=== PATIENT | male | born 1955 | race Caucasian/White ===

== ENCOUNTER → 2017-02-28 | Outpatient (CLI) | payer BC ==
[~2017-02-28] MED LIST: REGADENOSON 0.4 MG/5 ML DISP.SYRIN. IV ONE
--- NOTE | 2017-02-28 11:45 | CARD ---
APPROVED REPORT EXAM: Two-dimensional and M-mode echocardiogram with Doppler and color Doppler. Other Information Quality : Average Rhythm : NSR INDICATION Dyspnea 2D DIMENSIONS RVDd3.3 (2.9-3.5cm)Left Atrium(2D)3.2 (1.6-4.0cm) IVSd1.0 (0.7-1.1cm)Aortic Root(2D)2.9 (2.0-3.7cm) LVDd4.5 (3.9-5.9cm)LVOT Diameter2.2 (1.8-2.4cm) PWd1.0 (0.7-1.1cm)LVDs2.5 (2.5-4.0cm) FS (%) 33.9 %SV69.2 ml LVEF(%)65.3 (>50%) Aortic Valve AoV Peak Juanito.118.8cm/sAoV VTI26.8cm AO Peak GR.5.6mmHgLVOT Peak Juanito.76.1cm/s LVOT VTI 19.43cmAO Mean GR.3mmHg CHIP (VMAX)2.61iy6JLG (VTI)2.78cm2 Mitral Valve MV E Evaeikxq80.7cm/sMV DECEL DPQD567nj MV A Sduwpmiy74.3cm/sMV ZNP45ft E/A Ratio1.4MV A Pqtxzhlz637yw MVA (PHT)4.52cm2 TDI E/Lateral E'7.2E/Medial E'11.6 Pulmonary Valve PV Peak Jgjwsyff289.7cm/sPV Peak Grad.7mmHg RVOT VTI23.4cm Tricuspid Valve TR P. Qlkidjht188jz/sRAP RYNJLMJX1clOo TR Peak Gr.12vmMvVWZC71biZi Pulmonary Vein S1 Zebgghvs58.7cm/sD2 Kdeoaove01.3cm/s LEFT VENTRICLE The left ventricle is normal size. There is normal left ventricular wall thickness. Left ventricle sy stolic function is normal. The Ejection Fraction is 60-65%. There is normal LV segmental wall motion. The left ventricular diastolic function and filling is normal for age. There is no ventricular septa l defect visualized. RIGHT VENTRICLE The right ventricle is normal size. The right ventricular systolic function is normal. ATRIA The left atrium size is normal. The right atrium size is normal. The interatrial septum is intact wit h no evidence for an atrial septal defect or patent foramen ovale as noted on 2-D or Doppler imaging. AORTIC VALVE The aortic valve is normal in structure and function. The aortic valve is trileaflet. Doppler and Col or Flow revealed no significant aortic regurgitation. There is no significant aortic valvular stenosi s. MITRAL VALVE The mitral valve is normal in structure and function. There is no mitral valve stenosis. Doppler and Color Flow revealed no mitral valve regurgitation noted. TRICUSPID VALVE The TV valve leaflets appear slightly displaced to toward the apex, but less than 10 mm. No clear ebs teins morphology noted. Doppler and Color Flow revealed mild tricuspid regurgitation. The PA pressure was estimated at 30 mmHg. There is no tricuspid valve stenosis. PULMONIC VALVE The pulmonic valve is not well visualized. Doppler and Color Flow revealed no pulmonic valvular regur gitation. There is no pulmonic valvular stenosis. GREAT VESSELS The aortic root is normal in size. The ascending aorta is normal in size. Normal pulmonary venous mely w (Doppler). The IVC is normal in size and collapses >50% with inspiration. PERICARDIAL EFFUSION There is no evidence of significant pericardial effusion. Critical Notification Critical Value: No <Conclusion> Left ventricle systolic function is normal. The Ejection Fraction is 60-65%. There is normal LV segmental wall motion. The TV valve leaflets appear slightly displaced to toward the apex, but less than 10 mm. No clear ebs teins morphology noted.
--- NOTE | 2017-02-28 11:48 | RAD ---
APPROVED REPORT Patient Location: OUT-PATIENT Indications Uncontrolled HTN Renal Artery Doppler Right Renal Artery Left Renal Arter y Proximal 172.0/44.0 cm/secProximal 121.0/29.0 cm/sec Mid 155.0/31.0 cm/secMid 75.0/22.0 cm/sec Distal 70.0/22.0 cm/secDistal 67.0/17.0 cm/sec Renal/Aorta Ratio 0.00Renal/Aorta Ratio 0.00 Prox. Resistive Index 0.75Prox. Resistive Index 0.76 Mid Resistive Index 0.80Mid Resistive Index 0.71 Distal Resistive Index 0.69Distal Resistive Index 0.75 Rt. Segmental A. 29.0/7.0 cm/secLt. Segmental A. 33.0/10.0 cm/sec Renal Measurements RightLeft Kidney Kjdivj06 cm cmKidney Dsffoq76.9 cm cm Right Additional FindingsLeft Additional Findings Findings Limited grayscale images of the abdominal aorta reveal mild calcified plaque. Aortic velocities are a pproximately 139 cm/s. In the right renal artery assessment the proximal velocities slightly elevated at 172 7 m/s but the r enal to aortic ratios are within normal limits and there is no evidence of high-grade stenosis. The r ight kidney measures approximately 13 cm and has cortical hypertrophy. The left renal artery evaluation revealed normal velocities and normal renal to aortic ratios. Resist rebeca indices are grossly within normal limits. The left kidney measures approximately 13.9 cm again wi th cortical hypertrophy. Critical Notification Critical Value: No <Conclusion> 1. No significant bilateral renal artery stenosis.
--- NOTE | 2017-02-28 11:55 | RAD ---
APPROVED REPORT Test Type: Pharmacological Stress Nurse/Tech: Megan Lee RN Test Indications: DYSPNEA ON EXERTION Cardiac History: NONE Medications: SEE EHR Medical History: SEE EHR Resting ECG: SINUS RHYTM Resting Heart Rate: 54 bpm Resting Blood Pressure: 135/72mmHg Pretest Chest Pain: None Nurse/Tech Notes Consent: The procedure was explained to the patient in lay terms. Informed consent was witnessed. Keegan eout was entered into [employer]. History and Stress Test performed by RT Fady (R) (N) Pharm. Details Pharmacologic stress testing was performed using 0.4mg per 5ml of regadenoson given intravenously ove r 7-10 seconds. Stress Symptoms FACIAL FLUSHING POST EXERCISE Reason for Termination: Infusion complete Max HR: 82 bpm Max Blood Pressure: 131/72mmHg Chest Pain: No. Arrhythmia: No. INTERPRETATION Stress EKG Conclusion: No acute changes were noted. Imaging Protocol IMAGE PROTOCOL: Rest Tc-99m/stress Tc-99m 1 day Rest: Stress: Viability: Radiopharm.Tc99m EmsupimzcPq66j Sestamibi Snhi16fFe 35mCi Duration 15min. 10min. Img Date 02/28/2017 02/28/2017 Inj-Img Njhg86yre. 60min. Rest Admin Site:IV - Right AntecubitalAdministrator:RT Fady (R)(N) Stress Admin Site: IV - Right AntecubitalAdministrator: RT Fady (R)(N) STRESS DATA End Diast. Vol.105.0mlAv. Heart Rate60.0bpm End Syst. Vol.32.0mlCO Index BSA0.0L/min Myocardial Ozal981.0gEject. Zptjglff38.0% Stress Rates Pk. Fill Rate2.94EDV/secLVtime Pk. Fill 216.06msec Pk. Empty Rate3.62ESV/secLVtime Pk. Jbvwt241.58msec 07/25 Pk. Fill0.94EDV/sec Stress Scores Regional WT0.00Summed WT0.00 Regional WM0.00Summed WM1.00 The rest and stress images show normal perfusion, normal contraction and thickening. LV Perf. Quant 17 Seg. SSS0.00 17 Seg. SRS3.00 17 Seg. SDS0.00 Stress Defect Extent (% LAD)0.00Rest Defect Extent (% LAD)1.90Rev. Defect Extent (% LAD)0.00 Stress Defect Extent (% LCX) 0.00Rest Defect Extent (% LCX)0.00Rev. Defect Extent (% LCX)0.00 Stress Defect Extent (% RCA)0.00Rest Defect Extent (% RCA)2.20Rev. Defect Extent (% RCA)0.00 Stress Defect Extent (% CELINA)0.00Rest Defect Extent (% CELINA)3.50Rev. Defect Extent (% CELINA)0.00 Other Information Quality:Fair Risk Assessment: Low Risk Conclusion 1. No evidence of EKG changes with stress testing. 2. Normal perfusion at stress/rest. 3. Low risk study. 4. EF > 60%.
== END | disposition home or self-care (01) ==
LOC: NM 07:37
PROVIDERS: ATTEND Internal Medicine Cardiovascular Disease
DX: I10 Essential (primary) hypertension (principal); I49.5 Sick sinus syndrome; I08.1 Rheumatic disorders of both mitral and tricuspid valves; R06.09 Other forms of dyspnea
CPT/HCPCS: 78452; 93017; 93306; 93975; 96374; 96375; 96376; A9500; J2785

== ENCOUNTER → 2018-01-21 | Outpatient (CLI) | payer BC ==
[2018-01-21 12:14] LABS: ALBUMIN 4.1 g/dL (3.4-5.0); ALBUMIN/GLOBULIN RATIO 1.1 (1.0-1.7); ALK PHOS 60 U/L (46-116); ALT (SGPT) 42 U/L (16-63); ANION GAP 8 (6-14); AST (SGOT) 22 U/L (15-37); BLOOD UREA NITROGEN 15 mg/dL (8-26); BUN/CREATININE RATIO 17 (6-20); CALCIUM 9.2 mg/dL (8.5-10.1); CARBON DIOXIDE 27 mmol/L (21-32); CHLORIDE 103 mmol/L (98-107); CHOLESTEROL 260 mg/dL (0-200); CREATININE 0.9 mg/dL (0.7-1.3); GFR 86.1; GLUCOSE 128 mg/dL (70-99); HDLC 39 mg/dL (40-60); LDLC 191 mg/dL (0-100); NON-HDL CHOLESTEROL 221 mg/dL (0-129); POTASSIUM 3.8 mmol/L (3.5-5.1); SODIUM 138 mmol/L (136-145); TOTAL BILIRUBIN 0.3 mg/dL (0.2-1.0); TOTAL PROTEIN 7.8 g/dL (6.4-8.2); TRIGLYCERIDES 149 mg/dL (0-150); VLDLC 30 mg/dL (0-40)
[2018-01-21 12:21] LABS: CHOLESTEROL/HDL RATIO 6.7
[2018-01-21 22:12] LABS: ESTRADIOL LEVEL 44.3 pg/mL (7.6-42.6); PROGESTERONE 0.1 ng/mL (0.0-0.5); TESTOSTERONE TOTAL 624 ng/dL (264-916)
[2018-01-24 15:22] LABS: ESTRONE LEVEL 85 pg/mL (12-72)
[2018-01-25 09:17] LABS: DHEA 269 ng/dL (31-701)
== END | disposition home or self-care (01) ==
LOC: LAB 11:12
DX: E29.1 Testicular hypofunction (principal); I10 Essential (primary) hypertension
CPT/HCPCS: 36415; 80053; 80061; 82670; 82679; 84144; 84403

== ENCOUNTER → 2018-07-11 | Outpatient (CLI) | payer BC ==
--- NOTE | 2018-07-11 14:36 | CARD ---
MR#: [id number] Date of Study: 07/11/2018 Ordering Physician: SUNDEEP SMITH, Referring Physician: Cameron HOBBS: Rekha Cottrell RDCS APPROVED REPORT INDICATION Fatigue Hypertension/HCVD RISK FACTORS Hypertension PROCEDURE The patient underwent an Exercise Stress Test using the Mejia Protocol. Blood pressure, heart rate, a nd EKG were monitored. An Echocardiogram was performed by aviation electronics technician in four stages in quad fashion. At peak stress four se lected images were obtained and placed side by side with resting images for comparison. STRESS ECHO FINDINGS The resting Echocardiogram showed normal left ventricular systolic contractility with an estimated Ej ection Fraction of about 60 %. The Resting Echocardiogram showed normal augmentation of myocardial wall segments using a 16 segment model. The Stress Echocardiogram showed normal augmentation of myocardial wall segments using a 16 segment m yolanda. The Stress Echocardiogram left ventricular systolic contractility has an estimated Ejection Fraction of about 80%. Test Type: Exercise Stress Nurse/Tech: Janet Martin R.N. Test Indications: HTN, fatigue, SOB Cardiac History and Allergies: See [employer] EMR NKDA Medications: see ehr Medical History: see ehr Resting ECG: SR Resting Heart Rate: 66 bpm Resting Blood Pressure: 145/65mmHg Pretest Chest Pain: No chest pain Nurse/Tech Notes S1S2, lungs CTA Stress Symptoms SOB, fatigue POST EXERCISE Reason for Termination: Reached target heart rate Target HR: Yes Max HR: 154 bpm 97% of Maximum Predicted HR: 159 bpm Exercise duration: 12.00 min:sec, 4 Stage Exercise capacity: 12.8METs Max Blood Pressure: 200/80mmHg Blood Pressure response to exercise: Normal blood pressure response during stress. Heart Rate response to exercise: wnl Chest Pain: No. Arrhythmia: Yes. pac's and pvc's ST Change: Yes. non diagnostic changes INTERPRETATION Stress EKG Conclusion: Baseline EKG showed sinus rhythm. Non diagnostic changes at peak stress. No significant arrhythmias. Preliminary Notification Critical Value: No Signed by : Sundeep Smith, Electronically Approved : 07/11/2018 14:34:29
== END | disposition home or self-care (01) ==
LOC: ECHO 12:54
PROVIDERS: ATTEND Internal Medicine Cardiovascular Disease
DX: I10 Essential (primary) hypertension (principal); R53.83 Other fatigue
CPT/HCPCS: 93017; 93350

== ENCOUNTER → 2020-01-12 | Outpatient (CLI) | payer BC ==
--- NOTE | 2020-01-12 14:04 | CARD ---
MR#: [id number] Date of Study: 01/12/2020 Ordering Physician: SUNDEEP CORDOVA, Referring Physician: SUNDEEP CORDOVA, Tech: Steph Morris APPROVED REPORT EXAM: Two-dimensional and M-mode echocardiogram with Doppler and color Doppler. Other Information Quality : AverageHR: 65bpm INDICATION Hypertension/HCVD RISK FACTORS Hyperlipidemia 2D DIMENSIONS RVDd3.6 (2.9-3.5cm)Left Atrium(2D)3.5 (1.6-4.0cm) IVSd1.3 (0.7-1.1cm)Aortic Root(2D)3.2 (2.0-3.7cm) LVDd4.4 (3.9-5.9cm)LVOT Diameter2.0 (1.8-2.4cm) PWd0.9 (0.7-1.1cm)LVDs2.0 (2.5-4.0cm) FS (%) 53.4 %SV73.8 ml LVEF(%)84.5 (>50%) Aortic Valve AoV Peak Juanito.180.3cm/sAoV VTI34.3cm AO Peak GR.13.0mmHgLVOT Peak Juanito.90.4cm/s LVOT VTI 22.06cmAO Mean GR.7mmHg CHIP (VMAX)1.47ml3JOU (VTI)2.00cm2 Mitral Valve MV E Dtlwakyz03.8cm/sMV DECEL URDI353ix MV A Tyqttgxc01.2cm/sMV E Mean Gr.1mmHg MV PEW33tiF/A Ratio1.1 MVA (PHT)4.28cm2 TDI E/Lateral E'7.4E/Medial E'10.2 Pulmonary Valve PV Peak Zitsuwjt470.7cm/sPV Peak Grad.7mmHg Tricuspid Valve TR P. Xyjxrgrx648it/sRAP PJLCKJWZ7acGb TR Peak Gr.41pmJiJPRA22udDo Pulmonary Vein S1 Dysmkxin90.7cm/sD2 Rnetdhyu88.6cm/s PVa yqkbrlvg210hitg LEFT VENTRICLE The left ventricle is normal size. There is mild concentric left ventricular hypertrophy. The left ve ntricular systolic function is normal. The Ejection Fraction is 60-65%. There is normal LV segmental wall motion. RIGHT VENTRICLE The right ventricle is normal size. There is normal right ventricular wall thickness. The right ventr icular systolic function is normal. ATRIA The left atrium size is normal. The right atrium size is normal. The interatrial septum is intact wit h no evidence for an atrial septal defect or patent foramen ovale as noted on 2-D or Doppler imaging. AORTIC VALVE The aortic valve is thickened but opens well. Doppler and Color Flow revealed no significant aortic r egurgitation. Calculated aortic valve area is 2.15 cm2 with maximum pressure gradient of 15 mmHg and mean pressure gradient of 8 mmHg. MITRAL VALVE The mitral valve is normal in structure and function. There is no evidence of mitral valve prolapse. There is no mitral valve stenosis. Doppler and Color-flow revealed trace mitral regurgitation. TRICUSPID VALVE The tricuspid valve is normal in structure and function. Doppler and Color Flow revealed trace tricus pid regurgitation with an estimated PAP of 39 mmHg. There is no tricuspid valve stenosis. PULMONIC VALVE The pulmonic valve is not well visualized. Doppler and Color Flow revealed trace pulmonic valvular re gurgitation. GREAT VESSELS The aortic root is normal in size. The IVC is normal in size and collapses >50% with inspiration. PERICARDIAL EFFUSION There is no evidence of significant pericardial effusion. Critical Notification Critical Value: No <Conclusion> The left ventricular systolic function is normal. The Ejection Fraction is 60-65%. There is normal LV segmental wall motion. Trace mitral regurgitation. Trace tricuspid regurgitation with an estimated PAP of 39 mmHg. There is no evidence of significant pericardial effusion. Signed by : Sundeep Cordova, Electronically Approved : 01/12/2020 14:04:30
== END | disposition home or self-care (01) ==
LOC: ECHO 09:45
PROVIDERS: ATTEND Internal Medicine Cardiovascular Disease
DX: I51.7 Cardiomegaly (principal)
CPT/HCPCS: 93306

== ENCOUNTER → 2021-02-23 | Outpatient (CLI) | payer BC ==
--- NOTE | 2021-02-23 16:33 | CARD ---
MR#: [id number] Date of Study: 02/23/2021 Ordering Physician: SUNDEEP SMITH, Referring Physician: SUNDEEP SMITH Tech: [facility] APPROVED REPORT EXAM: Two-dimensional and M-mode echocardiogram with Doppler and color Doppler. Other Information Quality : AverageHR: 61bpm Rhythm : NSR INDICATION Hypertension/HCVD RISK FACTORS Hypertension 2D DIMENSIONS RVDd3.6 (2.9-3.5cm)Left Atrium(2D)3.6 (1.6-4.0cm) IVSd1.3 (0.7-1.1cm)Aortic Root(2D)3.1 (2.0-3.7cm) LVDd3.6 (3.9-5.9cm)LVOT Diameter2.4 (1.8-2.4cm) PWd1.3 (0.7-1.1cm)LVDs1.7 (2.5-4.0cm) FS (%) 51.9 %SV45.2 ml LVEF(%)83.9 (>50%) Aortic Valve AoV Peak Juanito.236.5cm/sAoV VTI52.1cm AO Peak GR.22.4mmHgLVOT Peak Juanito.146.0cm/s AO Mean GR.11mmHgAVA (VMAX)2.71cm2 Mitral Valve MV E Kwpxspfs12.9cm/sMV DECEL ZOUK189mx MV A Pkvpptci02.2cm/sE/A Ratio1.3 Pulmonary Valve PV Peak Anpdmapx287.7cm/s Tricuspid Valve TR P. Elvknijb139yo/sTR Peak Gr.34mmHg LEFT VENTRICLE The left ventricle is normal size. There is borderline to mild concentric left ventricular hypertroph y. The left ventricular systolic function is normal and the ejection fraction is within normal range. Estimated ejection fraction 60-65%. There is normal LV segmental wall motion. The left ventricular d iastolic function and filling is normal for age. RIGHT VENTRICLE The right ventricle is normal size. There is normal right ventricular wall thickness. The right ventr icular systolic function is normal. ATRIA The left atrium size is normal. The right atrium size is normal. The interatrial septum is intact wit h no evidence for an atrial septal defect or patent foramen ovale as noted on 2-D or Doppler imaging. AORTIC VALVE The aortic valve is calcified but opens well. Doppler and Color Flow revealed no significant aortic r egurgitation. There is no significant aortic valvular stenosis. MITRAL VALVE The mitral valve is normal in structure and function. There is no evidence of mitral valve prolapse. There is no mitral valve stenosis. Doppler and Color-flow revealed trace mitral regurgitation. TRICUSPID VALVE The tricuspid valve is normal in structure and function. Doppler and Color Flow revealed moderate ecc entric tricuspid regurgitation. RVSP 33 mm Hg There is no tricuspid valve stenosis. PULMONIC VALVE Doppler and Color Flow revealed no pulmonic valvular regurgitation. There is no pulmonic valvular shiv nosis. GREAT VESSELS The aortic root is normal in size. The ascending aorta is normal in size. The IVC is normal in size a nd collapses >50% with inspiration. PERICARDIAL EFFUSION There is no evidence of significant pericardial effusion. Critical Notification Critical Value: No <Conclusion> The left ventricular systolic function is normal and the ejection fraction is within normal range. E stimated ejection fraction 60-65%. There is normal LV segmental wall motion. Doppler and Color Flow revealed moderate eccentric tricuspid regurgitation. RVSP 33 mm Hg Signed by : Magdiel Black, Electronically Approved : 02/23/2021 16:33:27
== END ==
LOC: ECHO 07:38
PROVIDERS: ATTEND Internal Medicine Cardiovascular Disease
DX: I08.2 Rheumatic disorders of both aortic and tricuspid valves (principal); I10 Essential (primary) hypertension
CPT/HCPCS: 93306

== ENCOUNTER → 2021-07-20 | Outpatient (CLI) | payer BC ==
--- NOTE | 2021-07-20 12:39 | RAD ---
MR#: [id number] Date of Study: 07/20/2021 Ordering Physician: SUNDEEP SMITH, Referring Physician: MARIE HOBBS Tech: STAN Salazar APPROVED REPORT Test Type: Exercise Stress Nurse/Tech: Anai Huntley R.N. Test Indications: palpitations, WORTHY Cardiac History: htn, Medications: losartan Medical History: see ehr Resting ECG: sr Resting Heart Rate: 64 bpm Resting Blood Pressure: 153/81mmHg Pretest Chest Pain: No chest pain Nurse/Tech Notes lungs cta, heart tones regular Consent: The procedure was explained to the patient in lay terms. Informed consent was witnessed. Keegan eout was entered into [employer]. History and Stress Test performed by RT Fady (R) (N) Stress Symptoms No chest pain or symptoms. POST EXERCISE Reason for Termination: Reached target heart rate Target HR: Yes Max HR: 138 bpm 88% of Maximum Predicted HR: 156 bpm Exercise duration: 10:35 min:sec, 4 Stage Exercise capacity: 13.4METs Max Blood Pressure: 179/67mmHg Blood Pressure response to exercise: Normal blood pressure response during stress. Chest Pain: No. Arrhythmia: No. ST Change: Yes. Non-specific ST/T wave changes. INTERPRETATION Stress EKG Conclusion: No significant ischemia. Imaging Protocol IMAGE PROTOCOL: Rest Tc-99m/stress Tc-99m 1 day Rest: Stress: Viability: Radiopharm.Tc99m LzvhkabgzHo92v Sestamibi Dose10.4mCi 32mCi Duration 15min. 13min. Img Date 07/20/2021 07/20/2021 Inj-Img Kyko82yva. 60min. Post-Injection Exercise: 1 minute Rest Admin Site:IV - Right AntecubitalAdministrator:RT Fady (R)(N) Stress Admin Site: IV - Right AntecubitalAdministrator: RT Fady (R)(N) STRESS DATA End Diast. Vol.85.0mlLVEDV index BSA44.0ml End Syst. Vol.19.0mlLVESV index BSA10.0ml Myocardial Chlj187.0gEject. Wfwrjbxt20.0% Stress Scores Regional WT0.00Summed WT0.00 Regional WM0.00Summed WM0.00 The rest and stress images show normal perfusion, normal contraction and thickening. LV Perf. Quant 17 Seg. SSS0.00 17 Seg. SRS0.00 17 Seg. SDS0.00 Stress Defect Extent (% LAD)0.00Rest Defect Extent (% LAD)0.00Rev. Defect Extent (% LAD)0.00 Stress Defect Extent (% LCX) 0.00Rest Defect Extent (% LCX)0.00Rev. Defect Extent (% LCX)0.00 Stress Defect Extent (% RCA)0.00Rest Defect Extent (% RCA)0.00Rev. Defect Extent (% RCA)0.00 Stress Defect Extent (% CELINA)0.00Rest Defect Extent (% CELINA)0.00Rev. Defect Extent (% CELINA)0.00 Other Information Quality:Average Risk Assessment: Low Risk Conclusion 1. Normal exercise capacity with 13.4 Mets achieved. 2. No evidence of EKG changes with stress testing. 3. Normal perfusion at stress/rest. 4. Low risk study. 5. EF > 60%. Signed by : Magdiel Black, Electronically Approved : 07/20/2021 12:38:33
== END ==
LOC: NM 09:55
PROVIDERS: ATTEND Internal Medicine Cardiovascular Disease
DX: R06.09 Other forms of dyspnea (principal)
CPT/HCPCS: 78452; 93017; A9500